=== PATIENT | male | born 1980 | race Caucasian/White ===

== ENCOUNTER 2017-03-27 15:06 | Emergency (ER) | payer SELFPAY ==
[~2017-03-27] VITALS: Ht 175.3 cm; Wt 63.5 kg
[~2017-03-27 15:06] MED LIST: ACET-704 PO; CLIN150C14 PO; SULF1TAB24 PO
[2017-03-27 15:16] VITALS: BP 146/91
[2017-03-27] MEDS ORDERED: MUPI15CR TP (15:31)
[2017-03-27] MEDS ORDERED: SULF1TAB24 PO (15:31)
--- NOTE | 2017-03-27 15:32 | PHYS DOC ---
Past Medical History Past Medical History: No Pertinent History Past Surgical History: Other Additional Past Surgical Histo: tubes in ears Alcohol Use: None Drug Use: None Adult General Chief Complaint Chief Complaint: ABSCESS HPI HPI Patient is a 36 year old male who presents with an abscess on the left thigh that began 4 days ago. Patient denies any fever. Patient states the area opened up and drained. Review of Systems Review of Systems Constitutional: Denies fever or chills [] Eyes: Denies change in visual acuity, redness, or eye pain [] HENT: Denies nasal congestion or sore throat [] Musculoskeletal: Denies back pain or joint pain [] Integument: abscess on the left thigh Neurologic: Denies headache, focal weakness or sensory changes [] Endocrine: Denies polyuria or polydipsia [] Allergies Allergies Allergies Coded Allergies Type Severity Reaction Last Updated Verified No Known Drug Allergies 08/15/15 No Physical Exam Physical Exam Constitutional: Well developed, well nourished, no acute distress, non-toxic appearance. [] HENT: Normocephalic, atraumatic, bilateral external ears normal, oropharynx moist, no oral exudates, nose normal. Skin: Left lateral hip with an open wound approximately 1 x 1 cm. The area has 2 cm cellulitis surrounding the wound. The area is warm and tender to palpate but not fluctuant. Nothing is draining from the wound. Back: No tenderness, no CVA tenderness. [] Extremities: No tenderness, no cyanosis, no clubbing, ROM intact, no edema. [] Neurologic: Alert and oriented X 3, normal motor function, normal sensory function, no focal deficits noted. [] Psychologic: Affect normal, judgement normal, mood normal. [] Current Patient Data Vital Signs Vital Signs Date Time Temp Pulse Resp B/P (MAP) Pulse Ox O2 Delivery O2 Flow Rate FiO2 03/27/17 15:16 97.8 81 16 98 Room Air 97.8 EKG EKG [] Radiology/Procedures Radiology/Procedures [] Course & Med Decision Making Course & Med Decision Making Pertinent Labs and Imaging studies reviewed. (See chart for details) Patient has an open abscess on the left hip that does not need to be drained today. The area has cellulitis to it. Tetanus is up-to-date. Discharged with Bactrim and Bactroban. Instructed to keep the area clean and dry. Follow-up with primary care doctor in 1-2 weeks. Jake Disclaimer Dragon Disclaimer This electronic medical record was generated, in whole or in part, using a voice recognition dictation system. Departure Departure Impression: Primary Impression: Abscess of left hip Additional Impression: Cellulitis of left hip Disposition: HOME, SELF-CARE Condition: STABLE Referrals: NO PCP (PCP) Follow-up with the primary care doctor in 1-2 weeks Patient Instructions: Abscess, Care After, Cellulitis Additional Instructions: You were seen for an abscess of the left lateral hip. Keep the area clean and dry. Complete your oral antibiotics. Scripts Sulfamethoxazole/Trimethoprim (BACTRIM DS TABLET) 1 Each Tablet 1 TAB PO BID, #20 TAB Prov: RIGOBERTO KO APRN 03/27/17 Mupirocin Calcium (BACTROBAN CREAM) 15 Gm Cream..g. 1 BARBARA TP TID, #30 GM Prov: RIGOBERTO KO APRN 03/27/17 Problem Qualifiers RIGOBERTO KO APRN Mar 27, 2017 15:32
== END 2017-03-27 15:35 | disposition home or self-care (01) ==
LOC: ER 15:06
DX: L02.416 Cutaneous abscess of left lower limb (principal); L03.116 Cellulitis of left lower limb
CPT/HCPCS: 99283